=== PATIENT | male | born 2000 | race Caucasian/White ===

== ENCOUNTER 2024-09-15 10:05 | Outpatient (CLI) | payer OTHER, SELFPAY ==
[2024-09-20 14:39] LABS: Cocklebur IgE 3.38 kU/L (<0.70); Eastern Sycamore IgE 2.15 kU/L (<0.70); Epicoccum purpurascens IgE 3.76 kU/L (<0.70); Fusarium moniliforme, IgE 2.00 kU/L (<0.70); Penicillium chrysogenum IgE 0.23 kU/L (<0.70); Red Sorrel IgE 2.48 kU/L (<0.70); Stemphyllium IgE 7.07 kU/L (<0.70)
[2024-09-20 14:56] LABS: Wormwood IgE 2.11 kU/L (<0.70)
[2024-09-21 11:02] LABS: CLASS 0; CLASS 2; Cedar Red IgE 1.55 kU/L (<0.35); Rhodotorula IgE <0.35 kU/L (<0.35)
== END 2024-09-15 10:06 | disposition home or self-care (01) ==
PROVIDERS: PCP Nurse Practitioner Family; Visit Provider Physician Assistant
DX: L50.8 Other urticaria (principal); Z87.2 Personal history of diseases of the skin and subcutaneous tissue; J45.909 Unspecified asthma, uncomplicated; Z91.09 Other allergy status, other than to drugs and biological substances; Z91.018 Allergy to other foods
CPT/HCPCS: 36415; 86003